=== PATIENT | female | born 1970 | race Caucasian/White ===

== ENCOUNTER 2016-05-23 21:04 | Emergency (ER) | payer SELFPAY ==
[2016-05-23 21:12] VITALS: BP 110/69; PULSE 83; TEMP 99; BMI 24.0
--- NOTE | 2016-05-24 01:14 | PDOC ---
History of Present Illness - General History Source: Patient <Maximiliano Castelalnos - Last Filed: 05/24/16 04:00> - General History Source: Patient Exam Limitations: No Limitations - History of Present Illness Initial Comments: 05/24/16 01:38 The patient is a 46 year old female with significant past medical history of kidney stones who presents to the ED with 4-5 days of right lower back pain. Patient reports her pain radiates to her right lower quadrant. She reports associated 1 day of nausea, vomiting, and headache. States her symptoms are consistent with her previous kidney stones and when she was diagnosed with appendicitis. Her LMP was on 05/21. The patient denies fever, chills, cough, SOB, chest pain, and diarrhea. The patient denies dysuria, hematuria, urgency, and frequency. Allergies: NKDA Social History: No alcohol, tobacco, or drug use reported. Past Surgical History: appendectomy, and tubal ligation PCP: None reported <Angeline Ashley - Last Filed: 05/24/16 04:03> - General Chief Complaint: Back Pain Stated Complaint: PAIN, ACUTE Time Seen by Provider: 05/24/16 01:14 Past History - Past Medical History Anemia: No Asthma: No Cancer: No Cardiac Disorders: No CVA: No COPD: No CHF: No Dementia: No Diabetes: No GI Disorders: No Disorders: No HTN: No Hypercholesterolemia: No Kidney Stones: Yes Liver Disease: No Seizures: No Thyroid Disease: No - Surgical History Abdominal Surgery: No Appendectomy: Yes Cardiac Surgery: No Cholecystectomy: No Lung Surgery: No Neurologic Surgery: No Orthopedic Surgery: No - Psycho/Social/Smoking Cessation Hx Anxiety: No Suicidal Ideation: No Smoking History: Never smoked Have you smoked in the past 12 months: No Hx Alcohol Use: No Drug/Substance Use Hx: No Substance Use Type: None <Maximiliano Castellanos - Last Filed: 05/24/16 04:00> <Angeline Ashley - Last Filed: 05/24/16 04:03> - Past Medical History Allergies/Adverse Reactions: Allergies Allergy/AdvReac Type Severity Reaction Status Date / Time No Known Allergies Allergy Verified 05/23/16 21:12 Home Medications: Ambulatory Orders Levofloxacin [Levaquin -] 500 mg PO DAILY #10 tablet 01/02/16 Metronidazole [Flagyl -] 500 mg PO TID #30 tablet 01/02/16 Oxycodone HCl/Acetaminophen [Percocet 5-325 mg Tablet] 1 - 2 tab PO Q6H #28 tab MDD 4 01/02/16 Oxycodone HCl/Acetaminophen [Percocet 5-325 mg Tablet] 1 - 2 tab PO Q6H #20 tablet MDD 4 05/24/16 Review of Systems - Review of Systems Able to Perform ROS?: Yes Comments:: 05/24/16 01:39 CONSTITUTIONAL: Absent: fever, no chills, no fatigue EYES: Absent: visual changes ENT: Absent: ear pain, no sore throat CARDIOVASCULAR: Absent: chest pain, no palpitations RESPIRATORY: Absent: cough, no SOB GI: +right lower quadrant pain, nausea, vomiting Absent: no constipation, no diarrhea GENITOURINARY: Absent: dysuria, no frequency, no hematuria MUSCULOSKELETAL: +right lower back pain Absent: no arthralgia, no myalgia SKIN: Absent: rash NEURO: +headache <Angeline Ashley - Last Filed: 05/24/16 04:03> *Physical Exam - Vital Signs Last Vital Signs Temp Pulse Resp BP Pulse Ox 99.0 F 83 18 110/69 99 05/23/16 21:08 05/23/16 21:08 05/23/16 21:08 05/23/16 21:08 05/23/16 21:08 <Maximiliano Castellanos - Last Filed: 05/24/16 04:00> - Vital Signs Last Vital Signs Temp Pulse Resp BP Pulse Ox 99.0 F 83 18 110/69 99 05/23/16 21:08 05/23/16 21:08 05/23/16 21:08 05/23/16 21:08 05/23/16 21:08 - Physical Exam Comments: 05/24/16 01:39 GENERAL: Well-appearing, well-nourished. No apparent distress. HEENT: Normocephalic, atraumatic. PERRL, EOM intact. CARDIOVASCULAR: Normal S1, S2. Regular rate and rhythm. PULMONARY: Clear to auscultation bilaterally. ABDOMEN: Soft, non-distended, non-tender. EXTREMITIES: Normal ROM in all four extremities. No gross deformities. MUSCULOSKELETAL Right flank tenderness. No CVA tenderness. SKIN: Warm, dry. No rash NEUROLOGICAL: No focal neurological deficits. <Angeline Ashley - Last Filed: 05/24/16 04:03> ED Treatment Course - RADIOLOGY Radiograph Interpretation: 05/24/16 04:02 EXAM: SPIRAL- RENAL-STONE CT Reviewed by Imaging international broadcast music librarian: FINDINGS: Liver: Normal Spleen: Normal Pancreas : Normal Gallbladder: Normal Stomach: Normal Small bowel: Normal large bowel : Normal Appendix: Not visualized. Adrenals: Normal Kidneys: Right kidney appears normal with no hydronephrosis, renal mass, or stone. There is a nonobstructing 3 mm calyceal stone in the superior pole of the left kidney. Ureters: No ureteral stone, and Retroperitoneum: Surgical vascular clips in the right retroperitoneum bilaterally previous appendectomy. Vascular: Normal Lymphatic: No enlarged lymph nodes. Peritoneum: No free air or fluid. Pelvis: Uterus is retroverted without focal mass. There is no adnexal mass. Bladder appears normal. IMPRESSION: Left nephrolithiasis without obstruction. Normal appearing right kidney. Appendix not visualized, likely surgically absent. <Angeline Ashley - Last Filed: 05/24/16 04:03> Medical Decision Making - Medical Decision Making 05/24/16 04:01 Dr. Castellanos: The scribe's documentation has been prepared under my direction and personally reviewed by me in its entirery. I confirm that the note above accurately reflects all work, treatment, procedures, and medical decision making performed by me. <Maximiliano Castellanos - Last Filed: 05/24/16 04:00> *DC/Admit/Observation/Transfer - Discharge Dispostion Admit: No <Maximiliano Castellanos - Last Filed: 05/24/16 04:00> - Attestations Scribe Attestion: 05/24/16 01:39 Documentation prepared by Angeline Ashley, acting as certified medical aide for Maximiliano Castellanos MD <Angeline Ashley - Last Filed: 05/24/16 04:03> Diagnosis at time of Disposition: Musculoskeletal back pain Back pain Qualifiers: Back pain location: low back pain Chronicity: chronic Back pain laterality: right - Discharge Dispostion Disposition: HOME Condition at time of disposition: Stable - Prescriptions Prescriptions: Oxycodone HCl/Acetaminophen [Percocet 5-325 mg Tablet] 1 - 2 tab PO Q6H #20 tablet MDD 4 - Patient Instructions Printed Discharge Instructions: DI for Low Back Pain, DI for Musculoskeletal Pain
[2016-05-24 02:00] LABS: URINE APPEARANCE CLEAR; URINE BILIRUBIN NEGATIVE (NEGATIVE); URINE COLOR YELLOW; URINE GLUCOSE (UA) NEGATIVE (NEGATIVE); URINE KETONE NEGATIVE (NEGATIVE); URINE LEUK ESTERASE NEGATIVE (NEGATIVE); URINE NITRITE NEGATIVE (NEGATIVE); URINE PROTEIN NEGATIVE (NEGATIVE); URINE UROBILINOGEN 2.0 E.U/dl E.U./dl (0.2-1.0)
[2016-05-24 02:02] LABS: URINE BLOOD 2+ (NEGATIVE)
[2016-05-24 02:05] LABS: URINE BACTERIA RARE /hpf (NONE SEEN); URINE MUCUS RARE; URINE RBC 34 /hpf (0-3); URINE WBC 3 /hpf (3-5)
[2016-05-24] MEDS ORDERED: OXYCODONE/APAP 5/325MG COMBO TABLET ONE (04:11)
[2016-05-24] MEDS: OXYCODONE/APAP 5/325MG COMBO TABLET PO ONE (04:14)
== END 2016-05-24 04:15 | disposition home or self-care (01) ==
LOC: JER 21:04
DX: M79.1 Myalgia (principal); Z87.442 Personal history of urinary calculi
CPT/HCPCS: 74176; 81003; 81015; 84703; 87086; 99281-25